=== PATIENT | male | born 1950 | race African-American/Black ===

== ENCOUNTER 2017-03-07 10:29 | Emergency (ER) | payer MEDICAID ==
[~2017-03-07 10:29] MED LIST: OXYC10TA6 PO; TETR500C3 PO
[2017-03-07] MEDS ORDERED: KETOROLAC 30 MG/1 ML ONE (11:22)
[2017-03-08] MEDS ORDERED: CARISOPRODOL 350 MG TABLET PO ONE (15:00)
== END 2017-03-07 11:49 | disposition home or self-care (01) ==
LOC: ED 10:29
DX: M54.2 Cervicalgia (principal); M54.5 Low back pain; G89.29 Other chronic pain; W19.XXXA Unspecified fall, initial encounter; Y93.89 Activity, other specified; Y99.8 Other external cause status; Y92.89 Other specified places as the place of occurrence of the external cause
CPT/HCPCS: 99283

== ENCOUNTER 2018-09-04 18:28 | Emergency (ER) | payer MEDICARE, MEDICAID ==
[~2018-09-04 18:28] MED LIST changes: +TETR-17 PO; -TETR500C3 PO
[2018-09-04 18:34] VITALS: BP 179/90
== END 2018-09-04 18:38 | disposition left against medical advice (07) ==
LOC: ED 18:32
DX: M54.2 Cervicalgia (principal); M25.519 Pain in unspecified shoulder; Z53.21 Procedure and treatment not carried out due to patient leaving prior to being seen by health care provider

== ENCOUNTER 2018-09-15 21:43 | Emergency (ER) | payer MEDICARE, MEDICAID ==
[~2018-09-15] VITALS: Ht 180.3 cm; Wt 95.0 kg
[2018-09-15 21:46] VITALS: BP 138/92
== END 2018-09-15 22:49 | disposition home or self-care (01) ==
LOC: ED 22:39
DX: G89.29 Other chronic pain (principal); M25.511 Pain in right shoulder; M25.512 Pain in left shoulder; J44.9 Chronic obstructive pulmonary disease, unspecified; I10 Essential (primary) hypertension
CPT/HCPCS: 99283